=== PATIENT | female | born 1970 | race Caucasian/White ===

== ENCOUNTER 2023-05-09 07:02 | Emergency (ER) | payer MEDICAID, OTHER ==
[2023-05-09 07:49] LABS: BASOPHILS ABSOLUTE AUTO 0.03 K/uL (0.00-0.10); BASOPHILS PERCENT AUTO 0.7 % (0.1-1.3); EOSINOPHILS ABSOLUTE AUTO 0.07 K/uL (0.00-0.40); EOSINOPHILS PERCENT AUTO 1.5 % (0.0-5.4); HEMATOCRIT 26.3 % (34.3-46.0); IMMATURE GRAN ABSOLUTE AUTO 0.06 K/uL (0.00-0.23); IMMATURE GRAN PERCENT AUTO 1.3 % (0.0-0.7); LYMPHOCYTES ABSOLUTE AUTO 0.73 K/uL (0.8-3.3); LYMPHOCYTES PERCENT AUTO 16.1 % (11.4-47.7); MEAN CORPUSCULAR HEMOGLOBIN 33.7 pg (31.6-35.5); MEAN CORPUSCULAR HGB CONC 34.2 g/dL (31.6-35.5); MEAN CORPUSCULAR VOLUME 98.5 fL (81.4-99.0); MONOCYTES ABSOLUTE AUTO 0.32 K/uL (0.20-0.90); NEUTROPHILS ABSOLUTE AUTO 3.33 K/uL (1.0-7.6); NEUTROPHILS PERCENT AUTO 73.4 % (40.0-78.1); PLATELET COUNT,PLT 408 K/uL (130-375); RED BLOOD CELL COUNT 2.67 M/uL (3.77-5.24); WHITE BLOOD CELL COUNT,WBC 4.5 K/uL (3.2-11.0)
[2023-05-09] MEDS ORDERED: Albuterol/Ipratropium 3.0-0.5 MG/3 ML Neb Soln NEB ONE (08:03)
[2023-05-09 08:20] LABS: A/G RATIO 0.5 (1.2-2.2); ALANINE AMINOTRANSFERASE,ALT 16 U/L (12-78); ALBUMIN 1.9 g/dL (3.4-5.0); ALKALINE PHOSPHATASE 143 U/L (46-116); ASPARTATE AMNIOTRANSFERASE,AST 21 U/L (15-37); BILIRUBIN TOTAL 0.2 mg/dL (0.2-1.0); BLOOD UREA NITROGEN,BUN 27 mg/dL (7-18); CALCIUM 8.2 mg/dL (8.5-10.1); CARBON DIOXIDE,CO2 30 mmol/L (21-32); CHLORIDE,CL 82 mmol/L (100-108); CREATININE 1.1 mg/dL (0.6-1.0); EST CRCL DRUG DOSING (CG) 54.73 mL/min; ESTIMATED GFR 60 mL/min (>60); GLUCOSE RANDOM 141 mg/dL (74-106); POTASSIUM,K 4.4 mmol/L (3.6-5.2); PROTEIN TOTAL,TP 5.9 g/dL (6.4-8.2); TROPONIN I HIGH SENSITIVITY 24.2 pg/mL (<=60.3)
[2023-05-09] MEDS ORDERED: fentaNYL 100 MCG/2 ML SDV IM ONE (08:21)
[2023-05-09 08:23] LABS: PROTHROMBIN TIME 10.4 sec (9.2-10.6)
[2023-05-09 08:29] LABS: ANION GAP 11.4 mmol/L (5.0-14.0); SODIUM,NA 119 mmol/L (140-148)
[2023-05-09] MEDS ORDERED: Furosemide 40 MG/4 ML VIAL IVPUSH ONE ×2 (08:58→18:38)
[2023-05-09] MEDS ORDERED: Sodium Chloride 0.9% 10 ML Syringe FLUSH PRN (08:58)
[2023-05-09 09:04] LABS: APPEARANCE,URINE SLIGHTLY CLOUDY (CLEAR); BILIRUBIN,URINE NEGATIVE (NEGATIVE); COLOR,URINE YELLOW (YELLOW); GLUCOSE,URINE NEGATIVE (NEGATIVE); KETONES,URINE NEGATIVE (NEGATIVE); LEUKOCYTE ESTERASE,URINE NEGATIVE (NEGATIVE); NITRITE,URINE NEGATIVE (NEGATIVE); OCCULT BLOOD,URINE NEGATIVE (NEGATIVE); PH,URINE 7.5 (5.0-8.0); PROTEIN,URINE >=300 mg/dL (NEGATIVE); UROBILINOGEN,URINE 0.2 EU/dL (0.2-1.0)
[2023-05-09 09:13] LABS: BACTERIA,URINE MANY; EPITHELIAL CELLS,URINE FEW; RBC,URINE 0-5 (0-5); WBC,URINE 0-5 (0-5)
[2023-05-09 09:14] LABS: AMORPHOUS SEDIMENT,URINE NOT SEEN; AMPHETAMINES SCREEN, URINE NEGATIVE (NEGATIVE); BARBITURATE SCREEN,URINE NEGATIVE (NEGATIVE); BENZODIAZEPINES SCREEN,URINE NEGATIVE (NEGATIVE); METHADONE SCREEN, URINE NEGATIVE (NEGATIVE); METHAMPHETAMINES SCREEN, URINE NEGATIVE (NEGATIVE); MUCUS,URINE NOT SEEN; OXYCODONE SCREEN,URINE NEGATIVE (NEGATIVE); PROPOXYPHENE SCREEN,URINE NEGATIVE (NEGATIVE); THC SCREEN,URINE 50 NG/ML NEGATIVE (NEGATIVE)
[2023-05-09] MEDS ORDERED: Non-Formulary Medication 1 Each (Magnesium Oxide [Magnesium Oxide] 400 MG Tablet) PO SCH (13:15)
[2023-05-09] MEDS ORDERED: Non-Formulary Medication 1 Each (Insulin Degludec [Tresiba Flextouch U-100] 100 UNIT/ML Pe SQ SCH (13:15)
[2023-05-09] MEDS: Lisinopril 10 MG Tab PO SCH (13:59)
[2023-05-09] MEDS: Magnesium Oxide 400 MG Tab PO SCH (13:59)
[2023-05-09] MEDS: Carvedilol 12.5 MG Tab PO SCH (13:59)
[2023-05-09] MEDS: Insulin Glargine,Human Rec. Analog 100 Units/ML 3 ML Pen SUBCUT SCH (14:03)
[2023-05-09] MEDS ORDERED: Non-Formulary Medication 1 Each (Insulin Aspart [Novolog Flexpen] 100 UNIT/ML Insuln.Pen) SQ SCH (17:00)
[2023-05-09] MEDS: Insulin Lispro 100 Unit/ML 3 ML KwikPen SUBCUT SCH (17:50)
[2023-05-09] MEDS ORDERED: Acetaminophen 500 MG Tab PO ONE (19:26)
[2023-05-09] MEDS: Furosemide 40 MG Tab PO SCH (21:46)
[2023-05-09] MEDS ORDERED: Ketorolac 30 MG/ML SDV IVPUSH ONE (22:48)
[2023-05-10] MEDS ORDERED: Zolpidem 5 MG Tab PO ONE (00:23)
[2023-05-10 05:15] LABS: BASOPHILS ABSOLUTE AUTO 0.04 K/uL (0.00-0.10); BASOPHILS PERCENT AUTO 0.9 % (0.1-1.3); EOSINOPHILS ABSOLUTE AUTO 0.09 K/uL (0.00-0.40); HEMATOCRIT 26.7 % (34.3-46.0); HEMOGLOBIN 9.3 g/dL (11.2-15.5); IMMATURE GRAN PERCENT AUTO 0.4 % (0.0-0.7); LYMPHOCYTES PERCENT AUTO 19.5 % (11.4-47.7); MEAN CORPUSCULAR HEMOGLOBIN 33.6 pg (31.6-35.5); MEAN CORPUSCULAR HGB CONC 34.8 g/dL (31.6-35.5); MEAN CORPUSCULAR VOLUME 96.4 fL (81.4-99.0); MONOCYTES ABSOLUTE AUTO 0.36 K/uL (0.20-0.90); MONOCYTES PERCENT AUTO 7.8 % (3.3-12.6); NEUTROPHILS PERCENT AUTO 69.4 % (40.0-78.1); PLATELET COUNT,PLT 432 K/uL (130-375); RED BLOOD CELL COUNT 2.77 M/uL (3.77-5.24); WHITE BLOOD CELL COUNT,WBC 4.6 K/uL (3.2-11.0)
[2023-05-10 05:32] LABS: IMMATURE GRAN ABSOLUTE AUTO 0.02 K/uL (0.00-0.23)
[2023-05-10 05:33] LABS: ANION GAP 11.4 mmol/L (5.0-14.0); CALCIUM 8.3 mg/dL (8.5-10.1); CREATININE 1.2 mg/dL (0.6-1.0); EST CRCL DRUG DOSING (CG) 50.17 mL/min; POTASSIUM,K 4.4 mmol/L (3.6-5.2)
[2023-05-10] MEDS ORDERED: Acetaminophen 500 MG Tab PO ONE (06:20)
[2023-05-10] MEDS: Vancomycin 125 MG Cap PO SCH ×2 (06:31→08:59)
[2023-05-10] MEDS: Lisinopril 10 MG Tab PO SCH (08:58)
[2023-05-10] MEDS: Furosemide 40 MG Tab PO SCH (08:58)
[2023-05-10] MEDS: Carvedilol 12.5 MG Tab PO SCH (08:59)
[2023-05-10] MEDS: Insulin Glargine,Human Rec. Analog 100 Units/ML 3 ML Pen SUBCUT SCH (08:59)
[2023-05-10] MEDS: Magnesium Oxide 400 MG Tab PO SCH (08:59)
[2023-05-10] MEDS ORDERED: Multivitamins with Iron/Calcium/Folic Acid/Minerals Tab PO SCH (09:00)
[2023-05-10] MEDS: Insulin Lispro 100 Unit/ML 3 ML KwikPen SUBCUT SCH ×2 (09:08→13:00)
[2023-05-24] MEDS ORDERED: Vancomycin 125 MG Cap PO SCH (09:00)
[2023-05-31] MEDS ORDERED: Vancomycin 125 MG Cap PO SCH (09:00)
[2023-06-07] MEDS ORDERED: Vancomycin 125 MG Cap PO SCH (09:00)
== END 2023-05-10 13:20 | disposition home or self-care (01) ==
LOC: JP.ED 07:02
DX: I11.0 Hypertensive heart disease with heart failure (principal); I50.9 Heart failure, unspecified; E10.9 Type 1 diabetes mellitus without complications; F17.210 Nicotine dependence, cigarettes, uncomplicated; Z88.5 Allergy status to narcotic agent; Z79.899 Other long term (current) drug therapy
CPT/HCPCS: 36415; 71046; 80048; 80053; 80305; 81001; 82947; 83605; 83880; 84145; 84484; 85025; 85379; 85610; 94640; 96372; 96374; 96375; 96376; 99285; A9270; J1815; J1885; J1940; J3010; J3490; J7620

== ENCOUNTER 2023-05-14 16:33 | Emergency (ER) | payer OTHER ==
[2023-05-14] MEDS ORDERED: Sodium Chloride 0.9% 500 ML IV ONE (16:46)
[2023-05-14] MEDS ORDERED: Sodium Chloride 0.9% 1,000 ML IV SCH (17:15)
[2023-05-14 17:18] LABS: HEMATOCRIT 23.1 % (34.3-46.0); HEMOGLOBIN 8.1 g/dL (11.2-15.5); MEAN CORPUSCULAR HEMOGLOBIN 33.3 pg (31.6-35.5); MEAN CORPUSCULAR HGB CONC 35.1 g/dL (31.6-35.5); MEAN CORPUSCULAR VOLUME 95.1 fL (81.4-99.0); PLATELET COUNT,PLT 169 K/uL (130-375); RED BLOOD CELL COUNT 2.43 M/uL (3.77-5.24)
[2023-05-14 17:24] LABS: WHITE BLOOD CELL COUNT,WBC 0.4 K/uL (3.2-11.0)
[2023-05-14] MEDS ORDERED: Norepinephrine Bit/D5W Premix 4 MG in Premix Bag 1 BAG IV SCH (17:25)
[2023-05-14 17:44] LABS: BLOOD UREA NITROGEN,BUN 35 mg/dL (7-18); CALCIUM 7.3 mg/dL (8.5-10.1); CARBON DIOXIDE,CO2 23 mmol/L (21-32); CHLORIDE,CL 87 mmol/L (100-108); CREATININE 1.4 mg/dL (0.6-1.0); ESTIMATED GFR 45 mL/min (>60); GLUCOSE RANDOM 70 mg/dL (74-106); SODIUM,NA 122 mmol/L (140-148)
[2023-05-14] MEDS ORDERED: Cefepime 2 GM in Sodium Chloride 0.9% 50 ML IV ONE (17:44)
[2023-05-14] MEDS ORDERED: metroNIDAZOLE/Normal Saline 500 MG in Premix Bag 1 BAG IV ONE (17:44)
[2023-05-14 17:48] LABS: BAND ABSOLUTE MAN 0.03 K/uL; BAND PERCENT MAN 8 % (5-11); BLAST ABSOLUTE MAN 0.01 K/uL (0-0); BLASTS PERCENT MAN 2 %; EOSINOPHILS ABSOLUTE MAN 0.01 K/uL (0.00-0.40); EOSINOPHILS PERCENT MAN 2 % (2-4); LYMPHOCYTES ABSOLUTE MAN 0.05 K/uL (0.8-3.3); LYMPHOCYTES PERCENT MAN 12 % (24-44); MONOCYTES ABSOLUTE MAN 0.06 K/uL (0.20-0.90); MONOCYTES PERCENT MAN 16 % (2-6); NEUTROPHILS ABSOLUTE MAN 0.24 K/uL (1.0-7.6); SEG NEUTROPHILS PERCENT MAN 60 % (36-66)
[2023-05-14 17:50] LABS: ANISOCYTOSIS FEW; MICROCYTOSIS MODERATE
[2023-05-14 17:53] LABS: C-REACTIVE PROTEIN > 25.00 mg/dL (0.0-0.3)
[2023-05-14] MEDS ORDERED: 50% Dextrose in Water 50 ML Syringe IVPUSH ONE (17:59)
[2023-05-14] MEDS ORDERED: Sodium Chloride 0.9% 50 ML IV SCH (18:00)
[2023-05-14] MEDS ORDERED: Iopamidol 612 MG/ML 100 ML Bottle IV SCH (18:00)
[2023-05-14 18:09] LABS: BILIRUBIN,URINE NEGATIVE (NEGATIVE); COLOR,URINE YELLOW (YELLOW); GLUCOSE,URINE NEGATIVE (NEGATIVE); KETONES,URINE NEGATIVE (NEGATIVE); LEUKOCYTE ESTERASE,URINE NEGATIVE (NEGATIVE); NITRITE,URINE NEGATIVE (NEGATIVE); OCCULT BLOOD,URINE NEGATIVE (NEGATIVE); PH,URINE 7.5 (5.0-8.0); PROTEIN,URINE >=300 mg/dL (NEGATIVE); UROBILINOGEN,URINE 0.2 EU/dL (0.2-1.0)
[2023-05-14 18:09] LABS: PRO B-TYPE NATRIUR PEPT,BNPPRO 220715 pg/mL (5-125)
[2023-05-14 18:14] LABS: APPEARANCE,URINE SLIGHTLY CLOUDY (CLEAR)
[2023-05-14 18:15] LABS: AMORPHOUS SEDIMENT,URINE NOT SEEN; BACTERIA,URINE MANY; EPITHELIAL CELLS,URINE MODERATE; MUCUS,URINE NOT SEEN; RBC,URINE 0-5 (0-5); WBC,URINE 0-5 (0-5)
[2023-05-14] MEDS ORDERED: Acetaminophen 325 MG Tab PO ONE (18:45)
== END 2023-05-14 20:10 | disposition other institution (70) ==
LOC: JP.ED 16:33
DX: A41.9 Sepsis, unspecified organism (principal); R65.21 Severe sepsis with septic shock; I11.0 Hypertensive heart disease with heart failure; I50.9 Heart failure, unspecified; E10.9 Type 1 diabetes mellitus without complications; Z88.5 Allergy status to narcotic agent; Z88.0 Allergy status to penicillin; Z79.4 Long term (current) use of insulin; Z79.899 Other long term (current) drug therapy
CPT/HCPCS: 36415; 71045; 71250; 74176; 80048; 81001; 82947; 83605; 83880; 84484; 85025; 86140; 87040; 87077; 87186; 93005; 96365; 96367; 96375; 99285; A9270; J0692; J3490; J7030